=== PATIENT | male | born 1995 | race Two or more races ===

== ENCOUNTER 2023-09-05 09:47 | Outpatient (AMB) | payer OTHER, SELFPAY ==
--- NOTE | 2023-09-05 10:11 | MHC.PC.OV ---
Vital Signs 09/05/23 10:13 Height 5 ft 11 in Weight 204 lb BMI 28.4 BP 110/58 L Blood Pressure Location Lt brachial Position Sitting Pulse 77 Pulse Source Pulse Oximeter Pulse Oximetry (%) 98 Oxygen Delivery Method Room Air Intake Visit Reasons: Est Care Intake Note: Patient is here as a new patient, is concerned about anxiety, and right foot athlete's foot and jock itch. Patient would like to be tested, has been trying to have a baby 2 years. Allergies No Known Allergies Allergy (Verified 09/05/23 10:15) Tobacco use date assessed: 09/05/23 Dental Screening Dental Screen Date: 09/05/23 Did you have a dental visit in the last 12 months?: Yes Did you have a dental problem in the last 6 months where you did not have access to dental care?: No Was dental information given to patient?: Patient has dentist HPI Est Care HPI Details New patient Prior PCP:?[facility] Last office visit/CPE: More than 10 years ago Acute issue(s): Anxiety -Has not had a therapist before. Denies any SI/HI. R foot athlete's foot Jock itch Family planning -Has been trying to conceive x6 months. PMHx: L forearm fracture SurgHx: L forearm repair & hardware FHx: Mom: Rheumatoid arthritis. Dad: Arthritis, DM 2 SocHx: Nonsmoker. EtOH 1/day. No drugs. PFS Medical History (Updated 09/05/23 @ 11:11 by Sharath David) Complication internal fixation device such as nail, plate, or fidel Left forearm fracture Family History (Updated 09/05/23 @ 10:22 by Mounika Obrien CMA) Mother Asthma Father Diabetes Alcohol abuse Social History (Updated 09/05/23 @ 10:28 by Mounika Obrien CMA) Household Members: Spouse Both parents involved: No Caregiver staying overnight: No Housing: Apartment Are you a primary career technical supervisor to a significant other at home: No Do you presently have visiting nurse or other home services: No 75 years or older and lives alone: No Alcohol intake: current Comment: 1 beer nightly Patient Tobacco Use Status: Never used Tobacco Tobacco use type: Cigarette e-Cigarette/Vaping Use: Never Used Special tonio needs: Yes service: No Current occupational status: employed Current occupation: [employer] Cognitive needs: No Hearing needs: No Vision needs: Yes (Patient wears glasses) Questionnaire PHQ-9 Over the last 2 weeks, how often have you been bothered by any of the following problems? 1. Little interest or pleasure in doing things: not at all 2. Feeling down, depressed, or hopeless: not at all 3. Trouble falling or staying asleep, or sleeping too much: several days 4. Feeling tired or having little energy: not at all 5. Poor appetite or overeating: not at all 6. Feeling bad about yourself - or that you are a failure or have let yourself or your family down: not at all 7. Trouble concentrating on things, such as reading the newspaper or watching television: not at all 8. Moving or speaking so slowly that other people could have noticed. Or the opposite - being so fidgety or restless that you have been moving around a lot more than usual: not at all 9. Thoughts that you would be better off or of hurting yourself in some way: not at all Total score: 1 Source: Developed by Drs. Tono Castillo, Yolie Ramirez, Alexis Morillo and colleagues, with an educational leroy from [employer]. Thrive Questionnaire Date Thrive assessed: 09/05/23 I am a: Patient What is your living situation today?: I have a steady place to live Within the past 12 months, did the food you bought not last and you didn't have the money to get more?: Never true Within the past 12 months, did you worry whether your food would run out before you got money to buy more?: Never true Do you have trouble paying for medicines?: No Do you have trouble getting transportation to medical appointments?: No Do you have trouble paying your heating and electricity bill?: No Do you have trouble taking care of your child, family member or friend?: No Do you have trouble with day-to-day activities such as bathing, preparing meals, shopping, managing finances, etc.?: Yes Are you currently unemployed and looking for a job?: No Are you interested in more education?: Yes THRIVE Score: 0 AUDIT C Alcohol Use Questionnaire (AUDIT-C) 1. How often do you have a drink containing alcohol?: 4 or more times a week 2. How many drinks containing alcohol do you have on a typical day when you are drinking?: 1 or 2 3. How often do you have six or more drinks on one occasion?: Less than monthly Total Score: 5 SID-7 AMB Questionnaire SID-7 Date SID - 7 assessed: 09/05/23 Feeling nervous, anxious, or on edge: 2 = More than half the days Not being able to stop or control worryin = Several days Worrying too much about different things: 1 = Several days Trouble relaxin = Not at all Being so restless that it is hard to sit still: 0 = Not at all Becoming easily annoyed or irritable: 1 = Several days Feeling afraid as if something awful might happen: 0 = Not at all Total SID-7 score (0-4 normal; 5-9 mild; 10-14 moderate; 15-21 severe): 5 Source: Developed by Drs. Tono Castillo, Yolie Ramirez, Alexis Morillo and colleagues, with an educational leroy from [employer]. Review of Systems Psych Reports anxiety Physical exam (Primary Care) Vital Signs: Last Vital Signs Pulse 77 09/05/23 10:13 BP 110/58 L 09/05/23 10:13 Pulse Ox 98 09/05/23 10:13 Oxygen Delivery Method Room Air 09/05/23 10:13 BMI result Body Mass Index 28.4 Tobacco/Smoking Status: Tobacco use Status Tobacco use date assessed 09/05/23 09/05/23 10:35 Patient Tobacco Use Status Never used Tobacco 09/05/23 10:35 Tobacco use type Cigarette 09/05/23 10:28 e-Cigarette/Vaping Use Never Used 09/05/23 10:35 PHQ-9: PHQ-9 Score PHQ-9: Total score 1 09/05/23 11:03 Thrive Assessment: Date of Thrive Assessment Date Thrive assessed 09/05/23 09/05/23 10:35 Assessment and Plan Assessment & Plan (1) Anxiety: Code(s): F41.9 - Anxiety disorder, unspecified Plan: Referred?to?nurse?navigator?to?connect?him?with?a?therapist. Can?follow-up?at?subsequent?visit?and?discuss?medications?if?patient?needs?further?assistance (2) Athlete's foot: Code(s): B35.3 - Tinea pedis Plan: Change?socks?chcf?through?day Use?OTC?antifungal?cream?b.i.d. Checking?liver?enzymes. Can?discuss?other?options?at?follow-up?visit (3) Jock itch: Code(s): B35.6 - Tinea cruris Plan: Can?change?undergarments?chcf?through?day?and?avoid?excess?moisture Antifungal?cream?b.i.d. Checking?liver?enzymes?and?can?discuss?other?options?at?subsequent?visit (4) Family planning: Code(s): Z30.09 - Encounter for other general counseling and advice on contraception Plan: Patient?has not?been?using?protection?with?his??for?the?past?2?years?and?has?not?conceived.??They?have?been?specifically?trying?to?conceive?for?the?past?6?months?without?any?pregnancies. 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 I?am?checking?his?testosterone?levels?and?we?can?follow-up?on?this?may?need?a?referral?to?urology/infertility?clinic?as?well (5) Laboratory exam ordered as part of routine general medical examination: Code(s): Z00.00 - Encounter for general adult medical examination without abnormal findings Plan: Check?labs Orders: Orders Lipid Panel Today Z00.00 - Encounter for general adult medical examination without abnormal findings Microalbumin, Random (w Creat) Today I10 - Essential (primary) hypertension Testosterone, Free/Total Today Z30.09 - Encounter for other general counseling and advice on contraception, Z31.69 - Encounter for other general counseling and advice on procreation Comprehensive [place]. Panel Fast Today Z00.00 - Encounter for general adult medical examination without abnormal findings UA and rflx microscopic Today Z00.00 - Encounter for general adult medical examination without abnormal findings TSH reflex Free T4 Today Z00.00 - Encounter for general adult medical examination without abnormal findings Referrals Nurse Navigator Referral F41.9 - Anxiety disorder, unspecified Coding Level of Care Code New Pt Level 3 (85685) Diagnoses Anxiety F41.9 Athlete's foot B35.3 Jock itch B35.6 Family planning Z30.09 Laboratory exam ordered as part of routine general medical examination Z00.00
[2023-09-05 10:13] VITALS: BP 110/58; PULSE 77; O2SAT 98; BMI 28.4
== END 2023-09-05 11:19 | disposition home or self-care (01) ==
PROVIDERS: Visit Provider Family Medicine
DX: F41.9 Anxiety disorder, unspecified (principal); B35.3 Tinea pedis; B35.6 Tinea cruris; Z30.09 Encounter for other general counseling and advice on contraception; Z00.00 Encounter for general adult medical examination without abnormal findings
CPT/HCPCS: 99203

== ENCOUNTER 2023-12-06 10:25 | Outpatient (REF) | payer OTHER, SELFPAY ==
[2023-12-06 12:56] LABS: Alanine Aminotransferase 32 U/L (0-40); Albumin Level 4.5 g/dL (3.5-5.0); Alkaline Phosphatase 63 U/L (39-117); Anion Gap 14 (12-20); Aspartate Amino Transferase 22 U/L (5-37); Bilirubin Total 1.8 mg/dL (0.0-1.0); Blood Urea Nitrogen 16 mg/dL (9-16); Calcium 9.4 mg/dL (8.4-10.2); Carbon Dioxide 27 mmol/L (22-29); Chloride 104 mmol/L (96-108); Cholesterol 172 mg/dL (<200); Estimated Glomerular Filt Rate > 60; Glucose Fasting 85 mg/dL (60-99); HDL Cholesterol 34 mg/dL (>40); LDL Cholesterol Calculated 114 mg/dL (<100); Potassium 3.7 mmol/L (3.3-5.1); Sodium 141 mmol/L (135-145); TSH reflex Free T4 1.31 uIU/mL (0.32-4.0); Total Protein 7.7 g/dL (6.5-8.0); Triglycerides 124 mg/dL (<150)
[2023-12-06 14:45] LABS: Appearance Urine Clear; Color Urine Yellow; Glucose Urine UA Negative (Negative); Leukocyte Esterase Urine Negative (Negative); Nitrite Urine Negative (Negative); Specific Gravity - Urine 1.015 (1.005-1.025); Urine Blood Negative (Negative); Urine Ketones Negative (Negative); Urine Protein Negative (Neg-Trace)
[2023-12-06 15:41] LABS: Creatinine Urine 119.27 mg/dL; Microalbum/Creatinine Ratio Ur 9.2 ug/mg cr (<30)
[2023-12-15 14:54] LABS: Testosterone, Free 51.8 pg/mL (35.0-155.0); Testosterone, Total 259 ng/dL (250-1100)
== END 2023-12-06 10:26 | disposition home or self-care (01) ==
LOC: HO.WFDLDS 10:25
PROVIDERS: Visit Provider Family Medicine
DX: Z00.00 Encounter for general adult medical examination without abnormal findings (principal); I10 Essential (primary) hypertension; Z30.09 Encounter for other general counseling and advice on contraception; Z31.69 Encounter for other general counseling and advice on procreation
CPT/HCPCS: 36415; 80053; 80061; 81003; 82043; 82570; 84402; 84403; 84443

== ENCOUNTER → 2024-01-02 11:39 | Outpatient (AMB) | payer OTHER, SELFPAY ==
--- NOTE | 2024-01-02 12:23 | MHC.PC.OV ---
Vital Signs 01/02/24 12:24 Height 5 ft 11 in Weight 201 lb BMI 28.0 BP 120/72 Blood Pressure Location Lt brachial Position Sitting Pulse 79 Pulse Source Pulse Oximeter Pulse Oximetry (%) 98 Oxygen Delivery Method Room Air Intake Visit Reasons: CPE Intake Note: Patient is here for his physical. Allergies No Known Allergies Allergy (Verified 01/02/24 12:27) Medication List - Last Reconciled 01/02/24 by Nathan Silva MD No Known Home Meds Tobacco use date assessed: 01/02/24 Dental Screening Dental Screen Date: 09/05/23 HPI CPE HPI Details 28 y/o male presents for a CPE with f/u labs and health maintenance. Labs were drawn 12/07/23. Reviewed labs with pt. Triglycerides 124. TC 172. LDL 114. HDL low at 34. HPI Comments History of Present Illness Details Documentation assistance for Nathan Silva MD, was provided by Sharath David,? Plant Pathologist on 01/02/2024 at 1:16 PM EST. I, Dr. Silva, have read, observed, and verified documentation. [facility] Medical History (Updated 01/02/24 @ 13:14 by Sharath David) Complication internal fixation device such as nail, plate, or fidel Left forearm fracture Family History (Updated 09/05/23 @ 10:22 by Mounika Obrien CMA) Mother Asthma Father Diabetes Alcohol abuse Social History (Updated 09/05/23 @ 10:28 by Mounika Obrien CMA) Household Members: Spouse Both parents involved: No Caregiver staying overnight: No Housing: Apartment Are you a primary child care specialist to a significant other at home: No Do you presently have visiting nurse or other home services: No 75 years or older and lives alone: No Alcohol intake: current Comment: 1 beer nightly Patient Tobacco Use Status: Never used Tobacco Tobacco use type: Cigarette e-Cigarette/Vaping Use: Never Used Special tonio needs: Yes service: No Current occupational status: employed Current occupation: [employer] Cognitive needs: No Hearing needs: No Vision needs: Yes (Patient wears glasses) Questionnaire Thrive Questionnaire Date Thrive assessed: 09/05/23 SID-7 AMB Questionnaire SID-7 Date SID - 7 assessed: 09/05/23 Source: Developed by Drs. Tono Castillo, Yolie Ramirez, Alexis Morillo and colleagues, with an educational leroy from [employer]. Review of Systems Const Denies chills, Denies fatigue, Denies fever(s), Denies headache(s) and Denies weakness Eyes Denies change in vision ENT Denies dizziness, Denies headache(s), Denies hearing loss, Denies nasal congestion, Denies sinus pain, Denies sinus pressure and Denies sore throat Card Denies chest pain, Denies lightheadedness, Denies dyspnea and Denies other (palpitations) Resp Denies cough, Denies dyspnea and Denies wheezing GI Denies abdominal pain, Denies melena, Denies hematochezia, Denies change in bowel habits, Denies dyspepsia and Denies nausea Denies hematuria and Denies dysuria Musc Denies abnormal gait, Denies myalgias, Denies arthralgias, Denies numbness and Denies tingling Skin/Breast Denies rash, Denies unusual bruising and Denies wounds Neuro Denies abnormal gait, Denies dizziness, Denies headache(s), Denies memory loss, Denies numbness, Denies Sensory deficit (Neuro), Denies tingling and Denies weakness Psych Denies anxiety, Denies depression and Denies memory loss Endo Denies cold intolerance, Denies fatigue, Denies heat intolerance, Denies polydipsia and Denies polyuria Ritesh/Lymph Denies easy bleeding and Denies easy bruising Aller/Immun Denies wheezing Physical exam (Primary Care) Vital Signs: Last Vital Signs Pulse 79 01/02/24 12:24 BP 120/72 01/02/24 12:24 Pulse Ox 98 01/02/24 12:24 Oxygen Delivery Method Room Air 01/02/24 12:24 BMI result Body Mass Index 28.0 Tobacco/Smoking Status: Tobacco use Status Tobacco use date assessed 01/02/24 01/02/24 12:28 Patient Tobacco Use Status Never used Tobacco 01/02/24 12:28 Tobacco use type Cigarette 01/02/24 12:28 e-Cigarette/Vaping Use Never Used 01/02/24 12:28 Thrive Assessment: Date of Thrive Assessment Date Thrive assessed 09/05/23 01/02/24 12:28 Const General: no acute distress, well developed, alert and awake Nutritional Appearance: well nourished Orientation/consciousness: patient oriented x3 HENMT Head: Yes normocephalic and Yes atraumatic Ears: hearing grossly normal bilaterally and TM's normal bilaterally General nose exam: Normal external nose present and Normal nares present Mouth: Normal oral and palatal mucosa present and moist mucous membranes Teeth and gingiva: dentition normal Throat: Yes posterior oropharynx normal Eyes General: appearance normal, both eyes and all related structures Pupils: Equal, round and reactive pupils present and Pupil accommodation reflex normal EOM: EOMs intact bilaterally Neck Neck: Yes normal visual inspection, Yes no lymphadenopathy and Yes trachea midline Thyroid: Thyroid normal Carotids: no bruits Lymphatic: no lymphadenopathy noted Chest Chest palpation & inspection: normal inspection of the chest Resp Effort & Inspection: normal respiratory effort Auscultation: clear to auscultation bilaterally Cardio Rate: regular rate Rhythm: regular rhythm Heart sounds: S1 normal heart sound present, S2 normal heart sound present, no gallops, no murmurs and no rubs Bruits: no abdominal aortic bruits and no carotid bruits GI Palpation (GI): No Abdominal aortic bruit present, Soft to palpation, nontender, No hepatosplenomegaly present and No Rebound tenderness present Auscultation: normal bowel sounds General: Yes no CVA tenderness Back/Spine/Pelvis Back: no CVA tenderness Cervical Spine: cervical ROM normal and No Cervical spine tenderness Thoracic/Lumbar Spine: thoraco-lumbar ROM normal, No pain with thoraco-lumbar ROM, No thoracic spinal tenderness and No lumbar spinal tenderness Skin Lesions: no lesions Rashes: no rashes Trauma: no lacerations or abrasions Wounds: no wounds Nails: normal Neuro General: patient oriented x3 Cranial nerves: Yes Equal, round and reactive pupils present Cognition (Neuro): normal cognition Gait exam (Neuro): Normal gait present Motor exam (neuro): 5/5 motor strength present throughout Sensory Exam: No Sensory deficit (Neuro) Deep tendon reflexes (DTR's): Right patellar reflex intensity grade: 2+ and Left patellar reflex intensity grade: 2+ Extrem General: Yes normal to inspection and No edema Psych Appearance: grossly normal Affect: normal affect Attitude: cooperative Thought process: Normal thought process present Assessment and Plan Assessment & Plan (1) Adult general medical exam: Code(s): Z00.00 - Encounter for general adult medical examination without abnormal findings Plan: 28-year-old?male?presents?for?complete?physical?exam Encouraged?healthy?diet?with?active?lifestyle?and?plenty?of?exercise (2) Hypercholesterolemia: Code(s): E78.00 - Pure hypercholesterolemia, unspecified Plan: LDL?cholesterol?is?above?recommended?goal?of?less?than?100?and?HDL?is?low Encouraged?a?diet?low?in?saturated?fats?and?cholesterol.??Encouraged?weight?loss Encouraged?exercise Will?follow-up?in?a?few?months (3) Low HDL (under 40): Code(s): E78.6 - Lipoprotein deficiency Plan: HDL?is?low?and?I?encouraged?exercise. Orders: Orders Lipid Panel Today E78.00 - Pure hypercholesterolemia, unspecified, Z00.00 - Encounter for general adult medical examination without abnormal findings Comprehensive [place]. Panel Fast Today E78.00 - Pure hypercholesterolemia, unspecified, Z00.00 - Encounter for general adult medical examination without abnormal findings Coding Level of Care Code Est Pt Level 3 (96001) Est Pt Prev Care 18-39y(38953) Diagnoses Adult general medical exam Z00.00 Hypercholesterolemia E78.00 Low HDL (under 40) E78.6
[2024-01-02 12:24] VITALS: BP 120/72; PULSE 79; O2SAT 98; BMI 28.0
== END ==
PROVIDERS: Visit Provider Family Medicine
DX: Z00.00 Encounter for general adult medical examination without abnormal findings (principal); E78.00 Pure hypercholesterolemia, unspecified; E78.6 Lipoprotein deficiency
CPT/HCPCS: 99395

== ENCOUNTER 2024-01-24 09:52 | Outpatient (AMB) | payer OTHER, SELFPAY ==
--- NOTE | 2024-01-24 10:20 | AM.OFFWIN_ITS ---
Intake Vital Signs 3 01/24/24 10:21 Height 5 ft 11 in Weight 199 lb 2 oz BMI 27.8 BP 112/70 Blood Pressure Location Rt brachial Position Sitting Respiration 14 Pulse 75 Pulse Source Pulse Oximeter Temp 97.7 F Temp Source Temporal Artery Scan Pulse Oximetry (%) 98 Oxygen Delivery Method Room Air Intake Visit Reasons: infected wisdom tooth Patient Tobacco Use Status: Never used Tobacco Revenue Cycle Manager Required: No Accompanied by: Self / Same As Patient Allergies No Known Allergies Allergy (Verified 01/24/24 10:24) Medication List - Last Reconciled 01/24/24 by JO-ANN Glasgow ibuprofen 400 mg PO Q6H Do you need a note to return to daycare/school/sports/work: No HPI HPI Comments 2 History of Present Illness0 Details Here today with complaints of a dental infection. Reports that he has a known molar that is impacted & needs to be removed. He is active with a dentist and plans to have an extraction in 1 month. He has been doing his best to clean this however he is currently having pain, inflammation. The last time that he was on antibiotics for this was about 7 or 8 months ago. Reports that this was treated with amoxicillin and this worked well. [facility] Medical History (Updated 01/24/24 @ 13:45 by JO-ANN Glasgow) Complication internal fixation device such as nail, plate, or fidel Left forearm fracture Family History (Updated 09/05/23 @ 10:22 by Mounika Obrien CMA) Mother Asthma Father Diabetes Alcohol abuse Social History (Updated 09/05/23 @ 10:28 by Mounika Obrien CMA) Household Members: Spouse Both parents involved: No Caregiver staying overnight: No Housing: Apartment Are you a primary health care / medical job titles to a significant other at home: No Do you presently have visiting nurse or other home services: No 75 years or older and lives alone: No Alcohol intake: current Comment: 1 beer nightly Patient Tobacco Use Status: Never used Tobacco Tobacco use type: Cigarette e-Cigarette/Vaping Use: Never Used Special tonio needs: Yes service: No Current occupational status: employed Current occupation: [employer] Cognitive needs: No Hearing needs: No Vision needs: Yes (Patient wears glasses) Review of Systems Const All systems reviewed & are unremarkable except as noted in HPI and below Physical Exam Vital Signs: Last Vital Signs Temp 97.7 F 01/24/24 10:21 Pulse 75 01/24/24 10:21 Resp 14 01/24/24 10:21 BP 112/70 01/24/24 10:21 Pulse Ox 98 01/24/24 10:21 Oxygen Delivery Method Room Air 01/24/24 10:21 BMI result Body Mass Index 27.8 HEENT Teeth image: 2 1. Impacted molar, overlying gum erythematous and edematous, tender to touch, localize adenopathy, no streaking or erythema or warmth to the cheek or the neck. Assessment & Plan Assessment & Plan (1) Dental infection: Code(s): K04.7 - Periapical abscess without sinus Plan: . Medications: New 2 amoxicillin 500 mg PO TID 30 caps 0RF Patient Instructions: Take antibiotics as directed. Use food if it causes GI upset. Be sure to complete the course. Encouraged to use a water pick to help with dental cleaning. Follow up with dentist and oral surgeon for extraction. Educated on reasons to return to the office. Coding Level of Care Code Est Pt Level 3 (73180) Diagnoses Dental infection K04.7
[2024-01-24 10:21] VITALS: BP 112/70; PULSE 75; RESP 14; TEMP 36.5; O2SAT 98; BMI 27.8
== END 2024-01-24 10:45 | disposition home or self-care (01) ==
PROVIDERS: Visit Provider Nurse Practitioner Family
DX: K04.7 Periapical abscess without sinus (principal)
CPT/HCPCS: 99213

== ENCOUNTER 2025-06-17 11:25 | Outpatient (AMB) | payer OTHER, SELFPAY ==
--- NOTE | 2025-06-17 11:48 | MHC.PC.OV ---
Vital Signs 06/17/25 11:50 Height 5 ft 11 in Weight 202 lb BMI 28.2 BP 120/70 Blood Pressure Location Lt brachial Position Sitting Respiration 14 Pulse 71 Pulse Source Pulse Oximeter Temp 98.4 F Temp Source Oral Pulse Oximetry (%) 97 Oxygen Delivery Method Room Air Intake Visit Reasons: Anxiety issues Intake Note: patient is scheduled for mental health follow up [employer] Required: No Allergies No Known Allergies Allergy (Verified 06/17/25 11:49) Medication List - Last Reconciled 06/17/25 by Nathan Silva MD ibuprofen 400 mg PO Q6H Tobacco use date assessed: 01/02/24 Dental Screening Dental Screen Date: 09/05/23 HPI Anxiety issues HPI Details 29 y/o male presents today with complaints of anxiety. Had made referral to a therapist. He notes he had been contacted by a therapist but had been unable to get back to them. PHQ-9 7, SID-7 5 today. Reports some difficulty with concentration. HPI Comments History of Present Illness Details Documentation assistance for Nathan Silva MD, was provided by Sharath David, [employer] Duty Manager on 06/17/2025 at 12:25 PM EST. I, Dr. Silva, have read, observed, and verified documentation. [facility] Medical History (Updated 06/17/25 @ 12:18 by Sharath David) Complication internal fixation device such as nail, plate, or fidel Left forearm fracture Family History (Updated 09/05/23 @ 10:22 by Mounika Obrien CMA) Mother Asthma Father Diabetes Alcohol abuse Social History (Updated 09/05/23 @ 10:28 by Mounika Obrien CMA) Household Members: Spouse Both parents involved: No Caregiver staying overnight: No Housing: Apartment Are you a primary field care coordinator to a significant other at home: No Do you presently have visiting nurse or other home services: No 75 years or older and lives alone: No Alcohol intake: current Comment: 1 beer nightly Patient Tobacco Use Status: Never used Tobacco Tobacco use type: Cigarette e-Cigarette/Vaping Use: Never Used Special tonio needs: Yes service: No Current occupational status: employed Current occupation: [employer] Cognitive needs: No Hearing needs: No Vision needs: Yes (Patient wears glasses) Questionnaire PHQ-9 Over the last 2 weeks, how often have you been bothered by any of the following problems? 1. Little interest or pleasure in doing things: several days 2. Feeling down, depressed, or hopeless: not at all 3. Trouble falling or staying asleep, or sleeping too much: several days 4. Feeling tired or having little energy: several days 5. Poor appetite or overeating: not at all 6. Feeling bad about yourself - or that you are a failure or have let yourself or your family down: several days 7. Trouble concentrating on things, such as reading the newspaper or watching television: nearly every day 8. Moving or speaking so slowly that other people could have noticed. Or the opposite - being so fidgety or restless that you have been moving around a lot more than usual: not at all 9. Thoughts that you would be better off or of hurting yourself in some way: not at all Total score: 7 Depression Screening Interpretation: Positive Depression Screening Done: Yes 02879 - PHQ-9 Billing: Yes Source: Developed by Drs. Tono Castillo, Yolie Ramirez, Alexis Morillo and colleagues, with an educational leroy from [employer]. Thrive Questionnaire Date Thrive assessed: 09/05/23 I am a: Patient What is your living situation today?: I have a steady place to live Within the past 12 months, did the food you bought not last and you didn't have the money to get more?: Never true Within the past 12 months, did you worry whether your food would run out before you got money to buy more?: Never true Do you have trouble paying for medicines?: No Do you have trouble getting transportation to medical appointments?: No Do you have trouble paying your heating and electricity bill?: No Do you have trouble taking care of your child, family member or friend?: No Do you have trouble with day-to-day activities such as bathing, preparing meals, shopping, managing finances, etc.?: No Are you currently unemployed and looking for a job?: No Are you interested in more education?: Yes Please select the resources that you would like help with: None Currently or been in a relationship where the following occur: No concerns reported THRIVE Score: 0 AUDIT C Alcohol Use Questionnaire (AUDIT-C) 1. How often do you have a drink containing alcohol?: 2-3 times a week 2. How many drinks containing alcohol do you have on a typical day when you are drinking?: 1 or 2 3. How often do you have six or more drinks on one occasion?: Less than monthly Total Score: 4 SID-7 AMB Questionnaire SID-7 Date SID - 7 assessed: 06/17/25 Feeling nervous, anxious, or on edge: 1 = Several days Not being able to stop or control worryin = Several days Worrying too much about different things: 1 = Several days Trouble relaxin = Several days Being so restless that it is hard to sit still: 0 = Not at all Becoming easily annoyed or irritable: 1 = Several days Feeling afraid as if something awful might happen: 0 = Not at all Total SID-7 score (0-4 normal; 5-9 mild; 10-14 moderate; 15-21 severe): 5 Source: Developed by Drs. Tono Castillo, Yolie Ramirez, Alexis Morillo and colleagues, with an educational leroy from [employer]. SID-7 Assessment Billing SID-7 Assessment Tool: SID-7 Assessment 48115 Review of Systems Const Denies chills, Denies fatigue, Denies fever(s), Denies headache(s) and Denies weakness ENT Denies dizziness and Denies headache(s) Card Denies dyspnea Resp Denies cough, Denies dyspnea, Denies wheezing and Denies other (shortness of breath) Musc Denies numbness and Denies tingling Neuro Denies dizziness, Denies headache(s), Denies numbness, Denies tingling and Denies weakness Psych Reports anxiety and Reports depression Endo Denies fatigue Aller/Immun Denies wheezing Physical exam (Primary Care) Vital Signs: Last Vital Signs Temp 98.4 F 06/17/25 11:50 Pulse 71 06/17/25 11:50 Resp 14 06/17/25 11:50 BP 120/70 06/17/25 11:50 Pulse Ox 97 06/17/25 11:50 Oxygen Delivery Method Room Air 06/17/25 11:50 BMI result Body Mass Index 28.2 Tobacco/Smoking Status: Tobacco use Status Tobacco use date assessed 01/02/24 06/17/25 11:54 Patient Tobacco Use Status Never used Tobacco 06/17/25 11:54 Tobacco use type Cigarette 06/17/25 11:54 e-Cigarette/Vaping Use Never Used 06/17/25 11:54 PHQ-9: PHQ-9 Score PHQ-9: Total score 7 06/17/25 11:54 Depression Screening Interpretation: Positive Thrive Assessment: Date of Thrive Assessment Date Thrive assessed 09/05/23 06/17/25 11:54 Currently or been in a relationship where the following occur: No concerns reported Const General: well developed; No acute distress Nutritional Appearance: well nourished Orientation/consciousness: patient oriented x3 HENMT Head: Yes normocephalic and Yes atraumatic Eyes General: appearance normal, both eyes and all related structures Pupils: Equal, round and reactive pupils present EOM: EOMs intact bilaterally Resp Effort & Inspection: normal respiratory effort Auscultation: clear to auscultation bilaterally Cardio Rate: regular rate Rhythm: regular rhythm Heart sounds: S1 normal heart sound present, S2 normal heart sound present, no gallops, no murmurs and no rubs Neuro General: patient oriented x3 and gait normal Cranial nerves: Yes Equal, round and reactive pupils present Psych Affect: normal affect Coding Level of Care Code Est Pt Level 3 (99933) Diagnoses Anxiety F41.9 Difficulty concentrating R41.840 Additional Codes SID-7 Assessment Billing - SID-7 Assessment Tool: SID-7 Assessment 40525 ([id number]) PHQ-9 - 49494 - PHQ-9 Billing: Yes ([id number]) Assessment & Plan Assessment & Plan (1) Anxiety: Code(s): F41.9 - Anxiety disorder, unspecified Category: Medical (2) Difficulty concentrating: Code(s): R41.840 - Attention and concentration deficit Category: Medical Plan Patient has a history of anxiety and notes difficulty with focus and concentration. He would like evaluation for possible attention deficit disorder Will refer for evaluation We discussed a trial of bupropion but he would like non medication strategies 1st. Orders: Orders Comprehensive [place]. Panel Fast Today Z00.00 - Encounter for general adult medical examination without abnormal findings Lipid Panel Today Z00.00 - Encounter for general adult medical examination without abnormal findings UA CC w/rflx Micro + Cult Today Z00.00 - Encounter for general adult medical examination without abnormal findings Complete Blood Count Auto Diff Today Z00.00 - Encounter for general adult medical examination without abnormal findings Microalbumin, Random (w Creat) Today I10 - Essential (primary) hypertension TSH reflex Free T4 Today Z00.00 - Encounter for general adult medical examination without abnormal findings Hemoglobin A1c Today R73.01 - Impaired fasting glucose, Z00.00 - Encounter for general adult medical examination without abnormal findings Referrals Neuropsychiatry Referral R41.840 - Attention and concentration deficit
[2025-06-17 11:50] VITALS: BP 120/70; PULSE 71; RESP 14; TEMP 36.9; O2SAT 97; BMI 28.2
== END 2025-06-17 13:16 | disposition home or self-care (01) ==
LOC: HO.HMCFM 11:26
PROVIDERS: PCP Family Medicine; Visit Provider Family Medicine
DX: F41.9 Anxiety disorder, unspecified (principal); R41.840 Attention and concentration deficit

== ENCOUNTER → 2025-06-17 11:25 | Outpatient (BNVA) | payer OTHER, SELFPAY | PROVIDERS: Visit Provider Family Medicine | DX: R41.840 Attention and concentration deficit (principal); F41.9 Anxiety disorder, unspecified | CPT/HCPCS: 96127 ==